=== PATIENT | male | born 2000 | race Two or more races ===

== ENCOUNTER 2021-02-20 00:44 | Emergency (ER) | payer MEDICAID, OTHER ==
[~2021-02-20] VITALS: Ht 172.7 cm; Wt 59.0 kg
[2021-02-20 02:17] VITALS: BP 128/80
== END 2021-02-20 02:40 | disposition home or self-care (01) ==
LOC: ER 00:45
DX: K45.8 Other specified abdominal hernia without obstruction or gangrene (principal); N50.82 Scrotal pain